=== PATIENT | male | born 1950 | race Hispanic/Latino ===

== ENCOUNTER 2020-08-15 17:32 | Inpatient (IN) | payer SELFPAY ==
[2020-08-15 18:29] LABS: Basophils % 1.3 % (0-1.3); Hematocrit 39.3 % (39.6-49.0); Lymphocytes % 32.7 % (15.3-44.8); MPV 8.5 fL (7.6-11.3)
[2020-08-15 18:46] LABS: Protime INR 0.97
[2020-08-15 18:54] LABS: Albumin 3.8 g/dL (3.4-5.0); Bilirubin Direct 0.1 mg/dL (0-0.2); Bilirubin Total 0.4 mg/dL (0.2-1.0); Potassium 4.3 mmol/L (3.5-5.1); Protein, Total 7.6 g/dL (6.4-8.2); Troponin (Emerg Dept Use Only) 0.23 ng/mL (0.0-0.045)
[2020-08-15] MEDS ORDERED: ASPIRIN 81 MG CHEWABLE TABLET ONE (19:35)
[2020-08-15] MEDS ORDERED: MORPHINE 2 MG/ML SYR ONE (19:36)
[2020-08-15] MEDS ORDERED: METOPROLOL TARTRATE 5 MG/5 ML INJ IV ONE (19:36)
--- NOTE | 2020-08-15 19:52 | ER ---
Nurse's Notes [facility] Name: Ted Barbosa Age: 70 yrs Sex: Male : 1950 Arrival Date: 08/15/2020 Time: 17:35 Bed 18 Private MD: Diagnosis: Unstable angina;Non-ST elevation (NSTEMI) myocardial infarction Presentation: 08/15 17:42 Chief complaint: Patient states: Chest pain for 3 days. More constant today.. ll1 Coronavirus screen: Client denies travel out of the [place] in the last 14 days. At this time, the client does not indicate any symptoms associated with coronavirus-19. Ebola Screen: Patient denies travel to an Ebola-affected area in the 21 days before illness onset. Initial Sepsis Screen: Does the patient meet any 2 criteria? No. Patient's initial sepsis screen is negative. Does the patient have a suspected source of infection? Yes: Other: chest pain. Risk Assessment: Do you want to hurt yourself or someone else? Patient reports no desire to harm self or others. Onset of symptoms was August 13, 2020. 17:42 Method Of Arrival: Ambulatory ll1 17:42 Acuity: CHANTAL 3 ll1 Historical: - Allergies: 17:42 No Known Allergies; ll1 - PMHx: 17:42 Hypertension; High Cholesterol; GERD; Gout; ll1 - PSHx: 17:42 donated kidney; heart cath; ll1 - Immunization history:: Flu vaccine is not up to date. - Social history:: Smoking status: Patient denies any tobacco usage or history of. Screenin:40 Abuse screen: Denies threats or abuse. Denies injuries from another. Nutritional jl7 screening: No deficits noted. Tuberculosis screening: No symptoms or risk factors identified. Fall Risk IV access (20 points). Total [place] Fall Scale indicates No Risk (0-24 pts). Assessment: 18:40 General: Appears in no apparent distress. uncomfortable, Behavior is calm, cooperative, jl7 appropriate for age. Pain: Complains of pain in chest Pain does not radiate. Pain currently is 7 out of 10 on a pain scale. Quality of pain is described as sharp, Pain began 2-3 days ago. Neuro: Level of Consciousness is awake, alert, obeys commands, Oriented to person, place, time, situation. Cardiovascular: Patient's skin is warm and dry. Chest pain episodes are intermittent. Respiratory: Airway is patent Respiratory effort is even, unlabored, Respiratory pattern is regular, symmetrical. Derm: Skin is pink, warm \T\ dry. 20:15 Reassessment: Patient appears in no apparent distress at this time. No changes from jd3 previously documented assessment. Patient and/or family updated on plan of care and expected duration. Pain level reassessed. Patient is alert, oriented x 3, equal unlabored respirations, skin warm/dry/pink. 21:06 Reassessment: Patient appears in no apparent distress at this time. Patient and/or jd3 family updated on plan of care and expected duration. Pain level reassessed. Patient is alert, oriented x 3, equal unlabored respirations, skin warm/dry/pink. awaiting admission. 21:32 Reassessment: charting continued in [facility]. jd3 Vital Signs: 17:42 Pulse 70; Resp 17; Temp 98.1; Pulse Ox 95% ; Weight 71 kg; Height 5 ft. 2 in. (160 cm); ll1 Pain 8/10; 17:56 BP 152 / 76; ll1 18:40 BP 142 / 73; Pulse 71; Resp 15; Pulse Ox 93% ; jl7 20:15 BP 146 / 69; Pulse 74; Resp 14 S; Pulse Ox 96% on R/A; jd3 21:06 BP 142 / 73; Pulse 68; Resp 17 S; Pulse Ox 99% on R/A; jd3 17:42 Body Mass Index 27.73 (71.00 kg, 160 cm) ll1 ED Course: 17:35 Patient arrived in ED. ag5 17:44 Triage completed. ll1 17:44 Arm band placed on Patient placed in an exam room, on a stretcher. ll1 17:47 Radha Cohen, JAYE is Primary Nurse. jl7 18:00 Patient has correct armband on for positive identification. Placed in gown. Bed in low jl7 position. Call light in reach. Side rails up X 1. quality assurance monitor final on. Pulse ox on. NIBP on. 18:00 EKG done, by ED staff, reviewed by Herberth Charles MD. Inserted saline lock: 20 gauge in jl7 right wrist, using aseptic technique. Blood collected. Patient maintains SpO2 saturation greater than 95% on room air. 18:06 Herberth Charles MD is Attending Physician. kdr 18:30 Initial lab(s) drawn, by me, sent to lab. jl7 19:03 Attending Physician role handed off by Herberth Charles MD rn 19:03 Maurizio Goins MD is Attending Physician. rn 19:07 XRAY Chest (1 view) In Process Unspecified. EDMS 19:51 Giovanni Ren is Hospitalizing Provider. rn 19:53 Primary Nurse role handed off by Radha Cohen RN mw2 20:10 Wu Caruso RN is Primary Nurse. jd3 20:31 Lynne Barr MD is Hospitalizing Provider. jr8 21:07 No provider procedures requiring assistance completed. Patient admitted, IV remains in jd3 place. Administered Medications: 19:33 Drug: Aspirin Chewable Tablet 324 mg Route: PO; jd3 21:07 Follow up: Response: No adverse reaction jd3 19:33 Drug: Lopressor 5 mg Route: IVP; Site: right wrist; jd3 21:07 Follow up: Response: No adverse reaction jd3 20:27 Drug: Lovenox 70 mg Route: Sub-Q; Site: abdomen; jd3 21:07 Follow up: Response: No adverse reaction jd3 21:07 Not Given (Patient Refused): morphine 2 mg IVP once; (PAIN>8) RASS on ADMN: Combtv4, jd3 Very Agttd3, Agttd2, Rstlss1, AlertClm0, Drwsy-1, LtSdtn-2, ModSdtn-3, DpSdtn-4, UnArsble-5 x2 Outcome: 19:51 Decision to Hospitalize by Provider. rn 21:07 Admitted to ER Hold. Please see [facility] for further documentation. jd3 21:07 Condition: stable 21:07 Instructed on the need for admit, Demonstrated understanding of instructions. 08/16 00:00 Admitted to Med/surg accompanied by nurse, room 213, with chart, Report called to cele Dias RN Condition: stable Instructed on the need for admit, Demonstrated understanding of instructions. 00:03 Patient left the ED. jd3 Signatures: Dispatcher [employer] EDND Rittger, Herberth, Maurizio Teixeira MD, MD MD rn Roshni, LINWOOD Hess jr8 Radha Cohen, RN RN jl7 Wu Caruso RN RN jd3 Pepe Rosario 2 Ivania Mcintosh5 Paul Quigley, RN RN ll1
--- NOTE | 2020-08-15 19:52 | EDPHYS ---
Physician Documentation [facility] Name: Ted Barbosa Age: 70 yrs Sex: Male : 1950 Arrival Date: 08/15/2020 Time: 17:35 Bed 18 Private MD: ED Physician Maurizio Goins HPI: 08/15 19:02 This 70 yrs old Male presents to ER via Ambulatory with complaints of Chest kdr Pain. 19:02 The patient or guardian reports chest pain that is located primarily in the anterior kdr chest wall, left. Onset: gradually, 8 day(s) ago. The pain does not radiate. Associated signs and symptoms: Pertinent positives: nausea, Pertinent negatives: abdominal pain, cough, diaphoresis, dizziness, headache, shortness of breath. The chest pain is described as aching, dull, a pressure. Duration: The patient or guardian reports multiple episodes, that are intermittent, that wax and wane, with no pattern. Modifying factors: The symptoms are alleviated by nothing. the symptoms are aggravated by exertion. Severity of pain: At its worst the pain was moderate severe just prior to arrival, in the emergency department the pain is unchanged. Historical: - Allergies: 17:42 No Known Allergies; ll1 - PMHx: 17:42 Hypertension; High Cholesterol; GERD; Gout; ll1 - PSHx: 17:42 donated kidney; heart cath; ll1 - Immunization history:: Flu vaccine is not up to date. - Social history:: Smoking status: Patient denies any tobacco usage or history of. ROS: 19:05 Constitutional: Negative for fever, chills, and weight loss, Eyes: Negative for injury, kdr pain, redness, and discharge, Neck: Negative for injury, pain, and swelling, Respiratory: Negative for shortness of breath, cough, wheezing, and pleuritic chest pain, Abdomen/GI: Negative for abdominal pain, nausea, vomiting, diarrhea, and constipation, Back: Negative for injury and pain, : Negative for injury, bleeding, discharge, and swelling, MS/Extremity: Negative for injury and deformity, Skin: Negative for injury, rash, and discoloration, Neuro: Negative for headache, weakness, numbness, tingling, and seizure activity. Psych: Negative for depression, anxiety, suicide ideation, homicidal ideation, and hallucinations, Allergy/Immunology: Negative for hives, rash, and allergies, Endocrine: Negative for neck swelling, polydipsia, polyuria, polyphagia, and marked weight changes, Hematologic/Lymphatic: Negative for swollen nodes, abnormal bleeding, and unusual bruising. 19:05 Cardiovascular: Positive for chest pain, Negative for edema, orthopnea, palpitations, paroxysmal nocturnal dyspnea. Exam: 19:05 Constitutional: This is a well developed, well nourished patient who is awake, alert, kdr and in no acute distress. Head/Face: Normocephalic, atraumatic. Eyes: Pupils equal round and reactive to light, extra-ocular motions intact. Lids and lashes normal. Conjunctiva and sclera are non-icteric and not injected. Cornea within normal limits. Periorbital areas with no swelling, redness, or edema. Neck: Trachea midline, no thyromegaly or masses palpated, and no cervical lymphadenopathy. Supple, full range of motion without nuchal rigidity, or vertebral point tenderness. No Meningismus. Chest/axilla: Normal chest wall appearance and motion. Nontender with no deformity. No lesions are appreciated. Cardiovascular: Regular rate and rhythm with a normal S1 and S2. No gallops, murmurs, or rubs. Normal PMI, no JVD. No pulse deficits. Respiratory: Lungs have equal breath sounds bilaterally, clear to auscultation and percussion. No rales, rhonchi or wheezes noted. No increased work of breathing, no retractions or nasal flaring. Abdomen/GI: Soft, non-tender, with normal bowel sounds. No distension or tympany. No guarding or rebound. No evidence of tenderness throughout. Back: No spinal tenderness. No costovertebral tenderness. Full range of motion. Skin: Warm, dry with normal turgor. Normal color with no rashes, no lesions, and no evidence of cellulitis. MS/ Extremity: Pulses equal, no cyanosis. Neurovascular intact. Full, normal range of motion. Neuro: Awake and alert, GCS 15, oriented to person, place, time, and situation. Cranial nerves II-XII grossly intact. Motor strength 5/5 in all extremities. Sensory grossly intact. Cerebellar exam normal. Normal gait. Psych: Awake, alert, with orientation to person, place and time. Behavior, mood, and affect are within normal limits. 19:05 ECG was reviewed by the Attending Physician. Vital Signs: 17:42 Pulse 70; Resp 17; Temp 98.1; Pulse Ox 95% ; Weight 71 kg; Height 5 ft. 2 in. (160 cm); ll1 Pain 8/10; 17:56 BP 152 / 76; ll1 18:40 BP 142 / 73; Pulse 71; Resp 15; Pulse Ox 93% ; jl7 20:15 BP 146 / 69; Pulse 74; Resp 14 S; Pulse Ox 96% on R/A; jd3 21:06 BP 142 / 73; Pulse 68; Resp 17 S; Pulse Ox 99% on R/A; jd3 17:42 Body Mass Index 27.73 (71.00 kg, 160 cm) ll1 MDM: 19:03 Patient medically screened. rn 19:49 Differential diagnosis: acute myocardial infarction, acute pericarditis, coronary rn artery disease costochondritis, pericarditis, pleurisy, pneumonia, pneumothorax, stable angina, unstable angina. The patient was given aspirin in the Emergency Department. Data reviewed: vital signs, nurses notes, lab test result(s), EKG, radiologic studies, plain films, and as a result, I will admit patient. Counseling: I had a detailed discussion with the patient and/or guardian regarding: the historical points, exam findings, and any diagnostic results supporting the discharge/admit diagnosis, lab results, radiology results, the need for further work-up and treatment in the hospital. Response to treatment: the patient's symptoms have resolved after treatment, and as a result, I will admit patient. Admission orders: after a detailed discussion of the patient's condition and case, the admit orders are written by me. Admission orders: after a detailed discussion of the patient's condition and case, the admit orders are written by me. ED course: Pain resolved, trop elevated, reports 1 week of intermittent and increasing chest pain, sounds like unstable angina/NSTEMI, admitted to hospitalist service for further care and cardiology consultation. . 08/15 18:07 Order name: Basic Metabolic Panel; Complete Time: 19:05 kdr 08/15 18:07 Order name: CBC with Diff; Complete Time: 19:05 kdr 08/15 18:07 Order name: LFT's; Complete Time: 19:05 kdr 08/15 18:07 Order name: Magnesium; Complete Time: 19:05 kdr 08/15 18:07 Order name: NT PRO-BNP; Complete Time: 19:05 kdr 08/15 18:07 Order name: PT-INR; Complete Time: 19:05 kdr 08/15 18:07 Order name: Troponin (emerg Dept Use Only); Complete Time: 19:05 kdr 08/15 18:07 Order name: XRAY Chest (1 view); Complete Time: 20:25 kdr 08/15 23:09 Order name: COVID-19 jd3 08/15 23:17 Order name: CORONAVIRUS EDMS 08/15 18:07 Order name: EKG; Complete Time: 18:10 kdr 08/15 18:07 Order name: Cardiac monitoring; Complete Time: 18:36 kdr 08/15 18:07 Order name: EKG - Nurse/Tech; Complete Time: 18:37 kdr 08/15 18:07 Order name: IV Saline Lock; Complete Time: 18:37 kdr 08/15 18:07 Order name: Labs collected and sent; Complete Time: 18:37 kdr 08/15 18:07 Order name: O2 Per Protocol; Complete Time: 18:37 kdr 08/15 18:07 Order name: O2 Sat Monitoring; Complete Time: 18:37 kdr 08/15 20:05 Order name: CONS Physician Consult EDMS EC: Rate is 70 beats/min. Rhythm is regular, Normal Sinus Rhythm with No ectopy. QRS [place] kdr is Normal. DE interval is normal. QRS interval is normal. QT interval is normal. Clinical impression: Normal ECG. Administered Medications: 19:33 Drug: Aspirin Chewable Tablet 324 mg Route: PO; jd3 21:07 Follow up: Response: No adverse reaction jd3 19:33 Drug: Lopressor 5 mg Route: IVP; Site: right wrist; jd3 21:07 Follow up: Response: No adverse reaction jd3 20:27 Drug: Lovenox 70 mg Route: Sub-Q; Site: abdomen; jd3 21:07 Follow up: Response: No adverse reaction jd3 21:07 Not Given (Patient Refused): morphine 2 mg IVP once; (PAIN>8) RASS on ADMN: Combtv4, jd3 Very Agttd3, Agttd2, Rstlss1, AlertClm0, Drwsy-1, LtSdtn-2, ModSdtn-3, DpSdtn-4, UnArsble-5 x2 Disposition: 08/15/20 19:51 Hospitalization ordered by Lynne Barr for Inpatient Admission. Preliminary diagnosis are Unstable angina, Non-ST elevation (NSTEMI) myocardial infarction. - Bed requested for Telemetry/MedSurg (observation). - Status is Inpatient Admission. jd3 - Condition is Stable. - Problem is an ongoing problem. - Symptoms have improved. Signatures: Dispatcher [employer] EDMS Herberth Charles MD MD [facility] Maurizio Goins MD MD rn Roszak, Josh, PA PA jr8 Lexy Zuniga RN RN Wu Caruso RN RN jPaul Bethea RN RN ll1 Corrections: (The following items were deleted from the chart) 20:31 19:51 Hospitalization Ordered by Giovanni Ren for Inpatient Admission. Preliminary jr8 diagnosis is Unstable angina; Non-ST elevation (NSTEMI) myocardial infarction. Bed requested for Telemetry/MedSurg (Inpatient). Status is Inpatient Admission. Condition is Stable. Problem is an ongoing problem. Symptoms have improved. rn 20:56 20:31 08/15/2020 19:51 Hospitalization Ordered by Lynne Barr MD for Inpatient cg Admission. Preliminary diagnosis is Unstable angina; Non-ST elevation (NSTEMI) myocardial infarction. Bed requested for Telemetry/MedSurg (Inpatient). Status is Inpatient Admission. Condition is Stable. Problem is an ongoing problem. Symptoms have improved. [facility] 23:41 20:56 08/15/2020 19:51 Hospitalization Ordered by Lynne Barr MD for Inpatient cg Admission. Preliminary diagnosis is Unstable angina; Non-ST elevation (NSTEMI) myocardial infarction. Bed requested for [facility] ER HOLD. Status is Inpatient Admission. Condition is Stable. Problem is an ongoing problem. Symptoms have improved. 08/16 00:03 08/15 23:41 08/15/2020 19:51 Hospitalization Ordered by Lynne Barr MD for Inpatient jd3 Admission. Preliminary diagnosis is Unstable angina; Non-ST elevation (NSTEMI) myocardial infarction. Bed requested for Telemetry/MedSurg (observation). Status is Inpatient Admission. Condition is Stable. Problem is an ongoing problem. Symptoms have improved. cg
--- NOTE | 2020-08-15 20:04 | RAD REPORT ---
EXAM DESCRIPTION: Derrick Single View08/15/2020 7:07 pm CLINICAL HISTORY: Chest pain COMPARISON: none FINDINGS: The lungs appear clear of acute infiltrate. The heart is normal size IMPRESSION: No acute abnormalities displayed
[2020-08-15] MEDS ORDERED: ENOXAPARIN 80 MG/0.8 ML SQ ONE (20:35)
--- NOTE | 2020-08-15 22:04 | P.HP ---
Certification for Inpatient Patient admitted to: Observation With expected LOS: <2 Midnights Patient will require the following post-hospital care: None Practitioner: I am a practitioner with admitting privileges, knowledge of patient current condition, hospital course, and medical plan of care. Services: Services provided to patient in accordance with Admission requirements found in Title 42 Section 412.3 of the Code of Federal Regulations <Ricardo Barakat - Last Filed: 08/15/20 21:58> Patient History Date of Service: 08/15/20 Primary Care Provider: OOT Reason for admission: NSTEMI History of Present Illness: This is a 70-year-old gentleman that presented to the emergency room tonight after having sudden increase in his chest pain that has been going on for 1 week. Patient has a history of high blood pressure, high cholesterol, GERD, gout, myocardial infarction in the past that resulted in having 3 stents placed this past December. Patient stated that the chest pain has been going on for 1 week and is worse when he exerts himself and is relieved by nitroglycerin. Got to the [facility] where was not being well controlled and started to worry so came to the emergency room at that time. Patient had his stents placed in [place]. Stated that he has been on most of his medicines but has been off of his Plavix because it did not have it at the [facility] there and has had some cost constraints. Currently patient is resting in the emergency room comfortably and without any chest pain. EKG with nonspecific changes but did have an elevation in his troponin is 0.23. Patient denies any other symptoms at this time. Home medications list reviewed: Yes - Past Medical/Surgical History Has patient received pneumonia vaccine in the past: Yes Diabetic: Yes - Social History Smoking Status: Never smoker Alcohol use: No CD- Drugs: No Caffeine use: Yes Place of Residence: Home <SamayannaRicardo - Last Filed: 08/15/20 21:58> Date of Service: 08/16/20 - Family History Father -: Heart disease <Lynne Barr - Last Filed: 08/18/20 07:41> Allergies No Known Allergies Allergy (Verified 08/16/20 06:19) Home Medications: NK [No Home Meds] 08/16/20 Review of Systems General: Unremarkable Eyes: Unremarkable ENT: Unremarkable Respiratory: Unremarkable Cardiovascular: Chest Pain Gastrointestinal: Unremarkable Genitourinary: Unremarkable Musculoskeletal: Unremarkable Integumentary: Unremarkable Neurological: Unremarkable Lymphatics: Unremarkable <Ricardo Barakat - Last Filed: 08/15/20 21:58> Physical Examination - Vital Signs Temperature: 98.1 F Blood Pressure: 142/73 Pulse: 70 Respirations: 16 Pulse Ox (%): 95 - Physical Exam General: Alert, In no apparent distress, Oriented x3 HEENT: Normocephalic, PERRLA, Mucous membr. moist/pink, EOMI Neck: Supple, 2+ carotid pulse no bruit, JVD not distended, No Thyromegaly Respiratory: Clear to auscultation bilaterally, Normal air movement Cardiovascular: No edema, Normal pulses, Regular rate/rhythm, Normal S1 S2, No gallops, No rubs, No murmurs Capillary refill: <2 Seconds Gastrointestinal: Normal bowel sounds, Soft and benign, Non-distended, No ascites, No tenderness, No masses, No rebound, No guarding Musculoskeletal: No clubbing, No swelling, No contractures, No erythema, No tenderness, No warmth Integumentary: No rashes, No breakdown, No significant lesion, No tenderness/swelling, No erythema, No warmth, No cyanosis Neurological: Normal speech, Normal strength at 5/5 x4 extr, Normal tone, Sensation intact, Cranial nerves 3-12 intact, Normal affect Lymphatics: No axilla or inguinal lymphadenopathy - Studies Laboratory Data (last 24 hrs) 08/15/20 18:15: PT 11.5, INR 0.97 08/15/20 18:15: WBC 6.0, Hgb 13.4 L, Hct 39.3 L, Plt Count 163 08/15/20 18:15: Sodium 138, Potassium 4.3, BUN 26 H, Creatinine 1.48 H, Glucose 128 H, Magnesium 2.0, Total Bilirubin 0.4, AST 18, ALT 23, Alkaline Phosphatase 85 <Ricardo Barakat - Last Filed: 08/15/20 21:58> Assessment and Plan - Problems (Diagnosis) (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 Patient will be put on a sliding scale and monitored for tight glucose control. (2) Hyperlipidemia Current Visit: Yes Status: Acute Plan: Patient has long-standing hypercholesterolemia history. We will check a lipid profile panel and adjust his cholesterol medications. Patient currently is on 20 of atorvastatin and 10 pravastatin. This is not at a therapeutic level for a coronary artery disease patient. Will start him on 40 of atorvastatin to see how he does with that and then will gradually increased to 80 mg once a day of atorvastatin if Cardiology is Ok with that. (3) NSTEMI (non-ST elevated myocardial infarction) Current Visit: Yes Status: Acute Plan: Patient has an elevation in his troponin. As such patient will be monitored closely on the telemetry floor for pain and increase in troponin levels was serial enzymes drawn. Cardiology has been consulted and will see the patient 1st thing in the morning. EKGs will be completed as necessary. Patient will be started on Lovenox q.12 hr for therapeutic dosing for anticoagulation. Plavix will be restarted and aspirin will be continued as well. Patient has been given nitroglycerin as needed for pain management along with morphine. (4) Renal insufficiency Current Visit: Yes Status: Acute Plan: Patient has slight renal insufficiency noted on his labs. Patient has only 1 kidney as he donated another kidney in the past. Will monitor the renal levels closely. Light hydration via IV may be given at this time to see if it corrects. Discharge Plan: Home Plan to discharge in: 24 Hours - Advance Directives Does patient have a Living Will: No Does patient have a Durable POA for Healthcare: No - Code Status/Comfort Care Code Status Assessed: Yes Code Status: Full Code Critical Care: No Time Spent Managing Pts Care (In Minutes): 45 <Ricardo Barakat - Last Filed: 08/15/20 21:58> - Problems (Diagnosis) (1) Chest pain, rule out acute myocardial infarction Current Visit: Yes Status: Acute (2) Coronary artery disease Current Visit: Yes Status: Acute (3) Diabetes mellitus type 2 with complications Current Visit: Yes Status: Acute (4) Hyperlipidemia Current Visit: Yes Status: Acute (5) NSTEMI (non-ST elevated myocardial infarction) Current Visit: Yes Status: Acute <Lynne Barr - Last Filed: 08/18/20 07:41> Date of Service: 08/16/20 CHART REVIEWED. AGREE WITH EVENTS ABOVE. PATIENT TO PROCEED WITH CARDIAC CATHETERIZATION. <Lynne Barr - Last Filed: 08/18/20 07:41>
[2020-08-15] MEDS: ATORVASTATIN 40 MG TAB PO SCH (22:16)
[2020-08-15] MEDS ORDERED: D50W 25 GM/50 ML SYRINGE/VIAL IV PRN (22:16)
[2020-08-15] MEDS ORDERED: MORPHINE 2 MG/ML SYR IV PRN (22:16)
[2020-08-15] MEDS: ISOSORBIDE DINIT 5 MG TAB PO SCH (22:16)
[2020-08-15] MEDS ORDERED: GLUCAGON 1 MG/VIAL IM PRN (22:16)
[2020-08-15] MEDS: INSULIN -REGULAR HUMAN 50 UNIT/0.5 ML ML SQ SCH (22:16)
[2020-08-15] MEDS ORDERED: ONDANSETRON 4 MG/2 ML VIAL IV PRN (22:16)
[2020-08-15] MEDS ORDERED: ACETAMINOPHEN 500 MG TAB PO PRN (22:16)
[2020-08-15] MEDS ORDERED: NITROGLYCERIN 0.4 MG/TAB SL PRN (22:16)
[2020-08-15] MEDS ORDERED: ISOSORBIDE DINIT 5 MG TAB ONE (23:42)
[2020-08-16 01:13] VITALS: BMI 26.1
[2020-08-16 05:50] LABS: Potassium 4.2 mmol/L (3.5-5.1)
[2020-08-16 05:56] LABS: Absolute Lymphocytes (CBC) 1.9 K/uL (0.7-4.9); Hematocrit 41.5 % (39.6-49.0); Lymphocytes % 30.3 % (15.3-44.8); MPV 8.3 fL (7.6-11.3)
[2020-08-16 06:23] LABS: Troponin I 0.3 ng/mL (0.0-0.045)
[2020-08-16] MEDS: INSULIN -REGULAR HUMAN 50 UNIT/0.5 ML ML SQ SCH ×4 (07:30→21:00)
[2020-08-16] MEDS ORDERED: PNEUMOCOCCAL VACCINE 0.5 ML IMVAC ONE (08:00)
[2020-08-16] MEDS ORDERED: INFLUENZA VACCINE (for 3y+) 0.5 ML DOSE IMVAC ONE (08:00)
[2020-08-16] MEDS: ENOXAPARIN 80 MG/0.8 ML SQ SCH ×2 (08:02→21:34)
[2020-08-16] MEDS: CLOPIDOGREL 75 MG TABLET PO SCH (08:30)
[2020-08-16] MEDS: METOPROLOL TAR 50 MG TAB PO SCH ×2 (08:30→21:33)
[2020-08-16] MEDS: ASPIRIN EC 81 MG TAB PO SCH (08:30)
[2020-08-16] MEDS: ENALAPRIL 10 MG TAB PO SCH (08:31)
[2020-08-16] MEDS: ISOSORBIDE DINIT 5 MG TAB PO SCH ×2 (08:35→21:34)
[2020-08-16] MEDS ORDERED: NA CHLORIDE 0.9% 0 ML ONE (11:09)
[2020-08-16] MEDS ORDERED: LIDOCAINE 1% MPF 30 ML VIAL ONE (11:09)
[2020-08-16] MEDS ORDERED: FENTANYL CITR 100 MCG/2 ML ONE (11:09)
[2020-08-16] MEDS ORDERED: MIDAZOLAM HCL 2 MG/2 ML INJ ONE (11:09)
[2020-08-16] MEDS ORDERED: HEPA 1000U/500MLS 1,000 UNIT/500 ML BAG IV ONE (11:09)
[2020-08-16] MEDS ORDERED: NA CHLORIDE 0.9% 500 ML ONE (11:10)
[2020-08-16] MEDS ORDERED: NITROGLYCERIN/D5W 0 MG/0 ML BTL IV ONE (11:10)
[2020-08-16] MEDS ORDERED: NITROGLYCERIN 100 MCG/ML SYR (for cath lab use only) IV ONE (11:10)
[2020-08-16] MEDS ORDERED: ATROPINE SULF 1 MG/10 ML SYR IV ONE (11:10)
--- NOTE | 2020-08-16 11:28 | EKG ---
Test Date: 2020-08-15 Test Time: 17:52:03 Disk Sharpener: ABBY MEASUREMENT RESULTS: Intervals: Rate: 70 NV: 172 QRSD: 98 QT: 358 QTc: 386 [place]: P: 61 NV: 172 QRS: 64 T: 82 INTERPRETIVE STATEMENTS: Normal sinus rhythm Normal ECG No previous ECG available for comparison Electronically Signed On 08-16-20 11:27:08 CDT by Jairo Foster
[2020-08-16] MEDS ORDERED: ACETAMINOPHEN 325 MG TABLET PO PRN (17:13)
[2020-08-16] MEDS ORDERED: NITROGLYCERIN 0.4 MG/TAB SL PRN (17:14)
[2020-08-16] MEDS ORDERED: NA CHLORIDE 0.9% 1,000 ML IV PRN (17:16)
[2020-08-16] MEDS: AMLODIPINE 5 MG TAB PO SCH (18:49)
[2020-08-16] MEDS: ATORVASTATIN 40 MG TAB PO SCH (21:34)
[2020-08-17 05:46] LABS: Absolute Lymphocytes (CBC) 1.6 K/uL (0.7-4.9); Hematocrit 43.1 % (39.6-49.0); Lymphocytes % 24.2 % (15.3-44.8); MPV 7.5 fL (7.6-11.3); RBC Red Blood Cell Count 4.77 M/uL (4.33-5.43)
[2020-08-17 06:02] LABS: Potassium 4.2 mmol/L (3.5-5.1)
[2020-08-17] MEDS: INSULIN -REGULAR HUMAN 50 UNIT/0.5 ML ML SQ SCH ×4 (07:30→21:00)
--- NOTE | 2020-08-17 08:55 | P.PN ---
Subjective Date of Service: 08/16/20 Pain s/p cardiac catheterization. Patient will need bypass surgery. Arranging for transfer to tertiary care facility. Review of Systems 10-point ROS is otherwise unremarkable Physical Examination - Vital Signs Temperature: 97.0 F Blood Pressure: 140/78 Pulse: 60 Respirations: 16 Pulse Ox (%): 96 - Physical Exam General: Alert, In no apparent distress, Oriented x3 Respiratory: Clear to auscultation bilaterally, Normal air movement Cardiovascular: Regular rate/rhythm, Normal S1 S2, No murmurs Gastrointestinal: Normal bowel sounds, Soft and benign, Non-distended, No tenderness Musculoskeletal: No clubbing, No swelling, No tenderness Integumentary: No rashes Neurological: Normal speech, Normal tone, Sensation intact, Cranial nerves 3-12 intact, Normal affect Lymphatics: No axilla or inguinal lymphadenopathy - Studies Medications List Reviewed: Yes Assessment & Plan - Problems (Diagnosis) (1) Chest pain, rule out acute myocardial infarction Current Visit: Yes Status: Acute (2) Coronary artery disease Current Visit: Yes Status: Acute (3) Diabetes mellitus type 2 with complications Current Visit: Yes Status: Acute (4) Hyperlipidemia Current Visit: Yes Status: Acute (5) NSTEMI (non-ST elevated myocardial infarction) Current Visit: Yes Status: Acute - Plan Plan: 1. Transfer to tertiary care facility for bypass surgery 2. Continue with anti-platelet therapy and statin therapy 3. Strict blood pressure control 4. Monitor hemodynamics closely as well as monitor rhythm on telemetry 5. GI and DVT prophylaxis Discharge Plan: Home Plan to discharge in: Greater than 2 days - Advance Directives Does patient have a Living Will: No Does patient have a Durable POA for Healthcare: No - Code Status/Comfort Care Code Status: Full Code Critical Care: No Time Spent Managing PTS Care (In Minutes): 35
--- NOTE | 2020-08-17 08:58 | CON ---
Date of Consultation: 08/16/2020 Reason For Consultation: Non ST-elevation myocardial infarction. History Of Present Illness: The patient is a 70-year-old male who unfortunately gets most of his care in [place], so I have absolutely no records of what he has done, but he has a history of hypertension, dyslipidemia, coronary artery disease, status post multiple stents as recently as M arch of this year. He takes appropriate medication at home as prescribed, but we are not sure about the compliance. He came in with substernal chest pain, positive troponin, consistent with subendocar dial myocardial infarction. Symptoms have been going on for few hours when he came in. Past Medical History: As stated above. Allergies: NONE. Review of Systems: Negative. Social History: Negative. Family History: Noncontributory. Physical Examination: Vital Signs: Stable. He was afebrile. HEENT: Negative. Neck: Supple with no bruit. Chest: Clear to auscultation and percussion. Cardiac: Revealed a regular rhythm and rate. No murmurs, gallops, or rubs. Abdomen: Benign. Extremities: Revealed no clubbing, cyanosis, or edema. Diagnostic Data: His chest x-ray was negative. His troponin was 1.48. His hemoglobin was 13.4. PT and INR were normal. His glucose was 128. His troponin was 0.23. His BNP was 325. His EKG was no rmal. Impression And Plan: 1.Non ST-elevation myocardial infarction in a patient with history of coronary artery disease, statu s post multiple stents recently, noncompliant with medication. 2.Hypertension. 3.Dyslipidemia. I will take the patient to the laborer prestressed concrete on 08/16/2020. He understands the risks an d the benefits of the procedure and he agreed to proceed. For now, continue his present regimen. FLORY/KEVYN Voice ID: [id number] Report ID: [id number]
[2020-08-17] MEDS: CLOPIDOGREL 75 MG TABLET PO SCH (09:00)
[2020-08-17] MEDS: ISOSORBIDE DINIT 5 MG TAB PO SCH ×2 (09:47→21:57)
[2020-08-17] MEDS: AMLODIPINE 5 MG TAB PO SCH (09:47)
[2020-08-17] MEDS: ASPIRIN EC 81 MG TAB PO SCH (09:48)
[2020-08-17] MEDS: ENALAPRIL 10 MG TAB PO SCH (09:48)
[2020-08-17] MEDS: ENOXAPARIN 80 MG/0.8 ML SQ SCH ×2 (09:49→21:56)
[2020-08-17] MEDS: METOPROLOL TAR 50 MG TAB PO SCH ×2 (09:49→21:56)
--- NOTE | 2020-08-17 10:10 | OP ---
Date of Procedure: 08/16/2020 Surgeon: Jairo Foster MD Triage Specialist: Abbi Hidalgo. Procedure: Left heart catheterization with selective coronary arteriogram. Indication: Non-ST elevation myocardial infarction. Procedure In Detail: Mr. Knox is a 70-year-old male who really has no known record s that are available to us, but he has a history of hypertension, dyslipidemia, CAD status post stent s in [place] in December 2019. I am not so sure he is taking his medication, but he came in with chest p ain and positive troponin. Brought to the cytogenetics laboratory manager today, prepped and draped in the routine sterile fashion. Given Versed for sedation. Using the Seldinger technique, we put a 6-Trinidadian sheath in the right common femoral artery successfully. Angiography there was normal. StarClose was used to close the case. Sylvester catheter was used to do the catheterization. He was found to have a completely o ccluded stent in the LAD from the distal left main all the way down after the second diagonal. He al so had about 60 to 70% distal LAD stenosis. Circumflex was fairly free of disease. The RCA was smal l and nondominant. The plan was to send the patient for bypass surgery with the HOFFMAN to the LAD and possible LAD and endarterectomy unless I feel comfortable doing an angioplasty and stent on his multi ple stents in [place]. I am certainly uncomfortable with doing that here. This was discussed with t radha patient and the family. Complications: None. Blood Loss: 5 mL. Anesthesia: Total conscious sedation was 30 minutes. Final Diagnoses: Severe CAD. Plan: For possible HOFFMAN to the LAD. FLORY/KEVYN Voice ID: [id number] Report ID: [id number]
--- NOTE | 2020-08-17 14:21 | ECHO ---
HEIGHT: 5 ft 5 in WEIGHT: 156 lb 14.4 oz DATE OF STUDY: 08/17/[address]: Jairo Foster MD 2-DIMENSIONAL: YES M.MODE: YES DOPPLER: YES COLOR FLOW: YES TDS: PORTABLE: DEFINITY: BUBBLE STUDY: DIAGNOSIS: CHEST PAIN CARDIAC HISTORY: CATHERIZATION: YES SURGERY: NO PROSTHETIC VALVE: NO PACEMAKER: NO MEASUREMENTS (cm) DIASTOLIC (NORMALS) SYSTOLIC (NORMALS) IVSd 0.9 (0.6-1.2) LA Diam 2.7 (1.9-4.0) LVEF 54% LVIDd 2.7 (3.5-5.7) LVIDs 2.0 (2.0-3.5) %FS 27% LVPWd 0.9 (0.6-1.2) Ao Diam 2.2 (2.0-3.7) 2 DIMENSIONAL ASSESSMENT: RIGHT ATRIUM: NORMAL LEFT ATRIUM: NORMAL RIGHT VENTRICLE: NORMAL LEFT VENTRICLE: NORMAL TRICUSPID VALVE: NORMAL MITRAL VALVE: NORMAL PULMONIC VALVE: NORMAL AORTIC VALVE: MILD AORTIC INSUFFIENCY PERICARDIAL EFFUSION: NONE AORTIC ROOT: NORMAL LEFT VENTRICULAR WALL MOTION: NORMAL DOPPLER/COLOR FLOW: NORMAL COMMENTS: NORMAL LEFT VENTRICULAR EJECTION FRACTION 55-60% WITH NORMAL WALL MOTION. MILD AORTIC INSUFFIENCY. TECHNOLOGIST: JAMES MILIAN
--- NOTE | 2020-08-17 14:25 | P.DS ---
Discharge Date: 08/17/20 Primary Care Provider: DENI Disposition: TRANSFER TO [facility] Discharge Condition: GOOD Reason for Admission: NSTEMI Consultations: Quill Worker - Problems (1) Chest pain, rule out acute myocardial infarction Current Visit: Yes Status: Acute (2) Coronary artery disease Current Visit: Yes Status: Acute (3) Diabetes mellitus type 2 with complications Current Visit: Yes Status: Acute (4) Hyperlipidemia Current Visit: Yes Status: Acute (5) NSTEMI (non-ST elevated myocardial infarction) Current Visit: Yes Status: Acute Brief History of Present Illness: Patient is a 70-year-old gentleman who came to the hospital with chest d iscomfort. Pain was mainly in the sternal region. There was no radiation. Patient also has some shortness of breath associated with it. Patient saw the firmware architect and was scheduled for cardiac catheterization. Hospital Course: Patient her heart catheterization which revealed multivessel disease. Patient was advised for transfer to tertiary care facility-[facility]. At this time, patient is doing well. Patient is stable for transfer to a tertiary care facility for possible bypass surgery. Vital Signs/Physical Exam: Temp Pulse Resp BP Pulse Ox 97.8 F 57 18 111/62 92 08/17/20 12:00 08/17/20 12:00 08/17/20 12:00 08/17/20 12:00 08/17/20 12:00 General: Alert, In no apparent distress, Oriented x3 Respiratory: Clear to auscultation bilaterally, Normal air movement Cardiovascular: Regular rate/rhythm, Normal S1 S2, No murmurs Laboratory Data at Discharge: WBC 6.6 K/uL (4.3-10.9) 08/17/20 05:33 Hgb 15.0 g/dL (13.6-17.9) 08/17/20 05:33 Hct 43.1 % (39.6-49.0) 08/17/20 05:33 Plt Count 161 K/uL (152-406) 08/17/20 05:33 PT 11.5 SECONDS (9.5-12.5) 08/15/20 18:15 INR 0.97 08/15/20 18:15 Sodium 141 mmol/L (136-145) 08/17/20 05:33 Potassium 4.2 mmol/L (3.5-5.1) 08/17/20 05:33 BUN 29 mg/dL (7-18) H 08/17/20 05:33 Creatinine 1.62 mg/dL (0.55-1.3) H 08/17/20 05:33 Glucose 126 mg/dL (74-106) H 08/17/20 05:33 Magnesium 2.0 mg/dL (1.8-2.4) 08/15/20 18:15 Total Bilirubin 0.4 mg/dL (0.2-1.0) 08/15/20 18:15 AST 18 U/L (15-37) 08/15/20 18:15 ALT 23 U/L (12-78) 08/15/20 18:15 Alkaline Phosphatase 85 U/L (45-117) 08/15/20 18:15 Troponin I Cancelled 08/16/20 05:58 Triglycerides 69 mg/dL (<150) 08/16/20 00:36 Cholesterol 100 mg/dL (<200) 08/16/20 00:36 HDL Cholesterol 39 mg/dL (40-60) L 08/16/20 00:36 Cholesterol/HDL Ratio 2.56 08/16/20 00:36 Home Medications: NK [No Home Meds] 08/16/20 Patient Discharge Instructions: Transfer to [facility] Diet: AHA Activity: Fall precautions Followup: Unknown,U [Primary Care Provider] - Time spent managing pt's care (in minutes): 35
[2020-08-17] MEDS: ATORVASTATIN 40 MG TAB PO SCH (21:57)
[2020-08-18] MEDS: INSULIN -REGULAR HUMAN 50 UNIT/0.5 ML ML SQ SCH ×4 (07:30→20:00)
--- NOTE | 2020-08-18 07:45 | P.PN ---
Subjective Date of Service: 08/17/20 PATIENT WAS SUPPOSED TO GET TRANSFERRED. HOWEVER, AWAITING FOR ACCEPTANCE TO A TERTIARY CARE FACILITY. PATIENT DENIES HAVING CHEST PAIN. SYMPTOMS ARE STABLE. Review of Systems 10-point ROS is otherwise unremarkable Physical Examination - Vital Signs Temperature: 97.9 F Blood Pressure: 139/63 Pulse: 57 Respirations: 16 Pulse Ox (%): 96 - Physical Exam General: Alert, In no apparent distress, Oriented x3 Respiratory: Clear to auscultation bilaterally, Normal air movement Cardiovascular: Regular rate/rhythm, Normal S1 S2, No murmurs Gastrointestinal: Normal bowel sounds, Soft and benign, Non-distended, No tenderness Musculoskeletal: No clubbing, No swelling, No tenderness Neurological: Sensation intact, Cranial nerves 3-12 intact - Studies Medications List Reviewed: Yes Assessment & Plan - Problems (Diagnosis) (1) Chest pain, rule out acute myocardial infarction Current Visit: Yes Status: Acute (2) Coronary artery disease Current Visit: Yes Status: Acute (3) Diabetes mellitus type 2 with complications Current Visit: Yes Status: Acute (4) Hyperlipidemia Current Visit: Yes Status: Acute (5) NSTEMI (non-ST elevated myocardial infarction) Current Visit: Yes Status: Acute - Plan PLAN: 1. IF ARRANGE FOR TRANSFER TO A TERTIARY CARE FACILITY IN 2. CONTINUE WITH ANTI-PLATELET THERAPY AND STRICT BLOOD PRESSURE CONTROL 3. CONTINUE WITH STATIN THERAPY 4. MONITOR CARDIAC SYMPTOMS. Discharge Plan: Home Plan to discharge in: Greater than 2 days - Advance Directives Does patient have a Living Will: No Does patient have a Durable POA for Healthcare: No - Code Status/Comfort Care Code Status: Full Code Critical Care: No Time Spent Managing PTS Care (In Minutes): 35
[2020-08-18] MEDS: ENOXAPARIN 80 MG/0.8 ML SQ SCH ×2 (07:58→19:58)
[2020-08-18] MEDS: AMLODIPINE 5 MG TAB PO SCH (07:59)
[2020-08-18] MEDS: ISOSORBIDE DINIT 5 MG TAB PO SCH ×2 (08:00→19:59)
[2020-08-18] MEDS: ENALAPRIL 10 MG TAB PO SCH (08:00)
[2020-08-18] MEDS: METOPROLOL TAR 50 MG TAB PO SCH ×2 (08:00→19:59)
[2020-08-18] MEDS: ASPIRIN EC 81 MG TAB PO SCH (08:00)
--- NOTE | 2020-08-18 13:13 | P.PN ---
Subjective Date of Service: 08/18/20 Patient doing well with no new complaints. Patient's chest pain has resolved. Awaiting transfer to tertiary care facility Review of Systems 10-point ROS is otherwise unremarkable Physical Examination - Vital Signs Temperature: 97.2 F Blood Pressure: 123/68 Pulse: 54 Respirations: 18 Pulse Ox (%): 98 - Physical Exam General: Alert, In no apparent distress, Oriented x3 Respiratory: Clear to auscultation bilaterally, Normal air movement Cardiovascular: Regular rate/rhythm, Normal S1 S2, No murmurs Gastrointestinal: Normal bowel sounds, Soft and benign, Non-distended, No tenderness Musculoskeletal: No clubbing, No swelling, No tenderness Neurological: Sensation intact, Cranial nerves 3-12 intact - Studies Medications List Reviewed: Yes Assessment & Plan - Problems (Diagnosis) (1) Chest pain, rule out acute myocardial infarction Current Visit: Yes Status: Acute (2) Coronary artery disease Current Visit: Yes Status: Acute (3) Diabetes mellitus type 2 with complications Current Visit: Yes Status: Acute (4) Hyperlipidemia Current Visit: Yes Status: Acute (5) NSTEMI (non-ST elevated myocardial infarction) Current Visit: Yes Status: Acute - Plan PLAN: 1. ARRANGING FOR TRANSFER TO A TERTIARY CARE FACILITY 2. CONTINUE WITH ANTI-PLATELET THERAPY AND STRICT BLOOD PRESSURE CONTROL 3. CONTINUE WITH STATIN THERAPY 4. MONITOR CARDIAC SYMPTOMS 5. GI AND DVT PROPHYLAXIS Discharge Plan: Home Plan to discharge in: Greater than 2 days - Advance Directives Does patient have a Living Will: No Does patient have a Durable POA for Healthcare: No - Code Status/Comfort Care Code Status: Full Code Critical Care: No Time Spent Managing PTS Care (In Minutes): 35
[2020-08-18] MEDS: ATORVASTATIN 40 MG TAB PO SCH (20:00)
[2020-08-19] MEDS: INSULIN -REGULAR HUMAN 50 UNIT/0.5 ML ML SQ SCH ×4 (07:30→20:46)
[2020-08-19] MEDS: ENOXAPARIN 80 MG/0.8 ML SQ SCH ×2 (08:49→20:40)
[2020-08-19] MEDS: AMLODIPINE 5 MG TAB PO SCH (08:50)
[2020-08-19] MEDS: METOPROLOL TAR 50 MG TAB PO SCH ×2 (08:50→20:39)
[2020-08-19] MEDS: ASPIRIN EC 81 MG TAB PO SCH (08:50)
[2020-08-19] MEDS: ISOSORBIDE DINIT 5 MG TAB PO SCH ×2 (08:51→20:40)
[2020-08-19] MEDS: ENALAPRIL 10 MG TAB PO SCH (08:52)
[2020-08-19] MEDS: ATORVASTATIN 40 MG TAB PO SCH (20:39)
[2020-08-20] MEDS: INSULIN -REGULAR HUMAN 50 UNIT/0.5 ML ML SQ SCH ×4 (07:30→21:00)
[2020-08-20] MEDS: ASPIRIN EC 81 MG TAB PO SCH (09:44)
[2020-08-20] MEDS: ENOXAPARIN 80 MG/0.8 ML SQ SCH ×2 (09:45→20:54)
[2020-08-20] MEDS: ISOSORBIDE DINIT 5 MG TAB PO SCH ×2 (09:46→20:55)
[2020-08-20] MEDS: METOPROLOL TAR 50 MG TAB PO SCH ×2 (09:47→20:55)
[2020-08-20] MEDS: AMLODIPINE 5 MG TAB PO SCH (09:48)
[2020-08-20] MEDS: ENALAPRIL 10 MG TAB PO SCH (09:48)
[2020-08-20 20:30] VITALS: O2SAT 90
[2020-08-20 20:48] VITALS: TEMP 97.7
[2020-08-20] MEDS: ATORVASTATIN 40 MG TAB PO SCH (20:55)
[2020-08-21 00:01] VITALS: BP 124/68
--- NOTE | 2020-08-21 00:38 | P.PN ---
Subjective Date of Service: 08/19/20 Patient with no new complaints. Patient's denies chest pain. Updated family. Awaiting transfer to tertiary [facility] facility Review of Systems 10-point ROS is otherwise unremarkable Physical Examination - Vital Signs Temperature: 97.7 F Blood Pressure: 124/68 Pulse: 58 Respirations: 20 Pulse Ox (%): 99 - Physical Exam General: Alert, In no apparent distress, Oriented x3 Respiratory: Clear to auscultation bilaterally, Normal air movement Cardiovascular: Regular rate/rhythm, Normal S1 S2, No murmurs Gastrointestinal: Normal bowel sounds, Soft and benign, Non-distended, No tenderness Musculoskeletal: No clubbing, No swelling, No tenderness Neurological: Sensation intact, Cranial nerves 3-12 intact - Studies Medications List Reviewed: Yes Assessment & Plan - Problems (Diagnosis) (1) NSTEMI (non-ST elevated myocardial infarction) Status: Acute (2) Coronary artery disease Status: Acute (3) Chest pain, rule out acute myocardial infarction Status: Acute (4) Diabetes mellitus type 2 with complications Status: Acute (5) Hyperlipidemia Status: Acute - Plan PLAN: 1. AWAITIMG TRANSFER TO TERTIARY [facility] FACILITY 2. CONTINUE WITH ANTI-PLATELET THERAPY AND STRICT BLOOD PRESSURE CONTROL 3. CONTINUE WITH STATIN THERAPY 4. MONITORING FOR ANY CARDIAC SYMPTOMS 5. GI AND DVT PROPHYLAXIS Discharge Plan: Transfer Plan to discharge in: 48 Hours - Advance Directives Does patient have a Living Will: No Does patient have a Durable POA for Healthcare: No - Code Status/Comfort Care Code Status: Full Code Critical Care: No Time Spent Managing PTS Care (In Minutes): 35
--- NOTE | 2020-08-21 00:40 | P.PN ---
Subjective Date of Service: 08/20/20 CONTINUING TO DO WELL WITH NO NEW COMPLAINTS Review of Systems 10-point ROS is otherwise unremarkable Physical Examination - Vital Signs Temperature: 97.7 F Blood Pressure: 124/68 Pulse: 58 Respirations: 20 Pulse Ox (%): 99 - Physical Exam General: Alert, In no apparent distress, Oriented x3 Respiratory: Clear to auscultation bilaterally, Normal air movement Cardiovascular: Regular rate/rhythm, Normal S1 S2, No murmurs Gastrointestinal: Normal bowel sounds, Soft and benign, Non-distended, No tenderness, No masses, No rebound, No guarding Neurological: Sensation intact, Cranial nerves 3-12 intact - Studies Medications List Reviewed: Yes Assessment & Plan - Problems (Diagnosis) (1) NSTEMI (non-ST elevated myocardial infarction) Status: Acute (2) Coronary artery disease Status: Acute (3) Chest pain, rule out acute myocardial infarction Status: Acute (4) Diabetes mellitus type 2 with complications Status: Acute (5) Hyperlipidemia Status: Acute - Plan PLAN: CONTINUE WITH POC MENTIONED BELOW: 1. TRANSFER TO TERTIARY CARE FACILITY 2. CONTINUE WITH ANTI-PLATELET THERAPY AND STRICT BLOOD PRESSURE CONTROL 3. CONTINUE WITH STATIN THERAPY 4. MONITORING FOR ANY CARDIAC SYMPTOMS 5. GI AND DVT PROPHYLAXIS Discharge Plan: Transfer Plan to discharge in: 24 Hours - Advance Directives Does patient have a Living Will: No Does patient have a Durable POA for Healthcare: No - Code Status/Comfort Care Code Status: Full Code Critical Care: No Time Spent Managing PTS Care (In Minutes): 35
--- NOTE | 2020-08-21 00:42 | P.DS ---
Discharge Date: 08/21/20 Primary Care Provider: EDNI Disposition: TRANSFER TO [facility] Discharge Condition: GOOD Reason for Admission: NSTEMI Consultations: Artificial Foliage Arranger - Problems (1) NSTEMI (non-ST elevated myocardial infarction) Status: Acute (2) Coronary artery disease Status: Acute (3) Chest pain, rule out acute myocardial infarction Status: Acute (4) Diabetes mellitus type 2 with complications Status: Acute (5) Hyperlipidemia Status: Acute Brief History of Present Illness: Patient is a 70-year-old gentleman who came to the hospital with chest discomfort. Pain was mainly in the sternal region. There was no radiation. Patient also has some shortness of breath associated with it. Patient saw the product engineering manager and was scheduled for cardiac catheterization. Hospital Course: Patient had heart catheterization which revealed multivessel disease. Patient was advised for transfer to tertiary care facility-[facility]. At this time, patient is doing well. Patient is stable for transfer to a tertiary care facility for possible bypass surgery. It took about 72hrs to get patient transferred. Patient will transfer in stable condition. Vital Signs/Physical Exam: Temp Pulse Resp BP Pulse Ox 97.7 F 58 20 124/68 99 08/21/20 00:40 08/21/20 00:40 08/21/20 00:40 08/21/20 00:40 08/21/20 00:40 General: Alert, In no apparent distress, Oriented x3 Laboratory Data at Discharge: WBC 6.6 K/uL (4.3-10.9) 08/17/20 05:33 Hgb 15.0 g/dL (13.6-17.9) 08/17/20 05:33 Hct 43.1 % (39.6-49.0) 08/17/20 05:33 Plt Count 161 K/uL (152-406) 08/17/20 05:33 PT 11.5 SECONDS (9.5-12.5) 08/15/20 18:15 INR 0.97 08/15/20 18:15 Sodium 141 mmol/L (136-145) 08/17/20 05:33 Potassium 4.2 mmol/L (3.5-5.1) 08/17/20 05:33 BUN 29 mg/dL (7-18) H 08/17/20 05:33 Creatinine 1.62 mg/dL (0.55-1.3) H 08/17/20 05:33 Glucose 126 mg/dL (74-106) H 08/17/20 05:33 Magnesium 2.0 mg/dL (1.8-2.4) 08/15/20 18:15 Total Bilirubin 0.4 mg/dL (0.2-1.0) 08/15/20 18:15 AST 18 U/L (15-37) 08/15/20 18:15 ALT 23 U/L (12-78) 08/15/20 18:15 Alkaline Phosphatase 85 U/L (45-117) 08/15/20 18:15 Troponin I Cancelled 08/16/20 05:58 Triglycerides 69 mg/dL (<150) 08/16/20 00:36 Cholesterol 100 mg/dL (<200) 08/16/20 00:36 HDL Cholesterol 39 mg/dL (40-60) L 08/16/20 00:36 Cholesterol/HDL Ratio 2.56 08/16/20 00:36 Home Medications: NK [No Home Meds] 08/16/20 Patient Discharge Instructions: Transfer to [facility] Diet: AHA Activity: Fall precautions Followup: Unknown,U [Primary Care Provider] - Time spent managing pt's care (in minutes): 15
== END 2020-08-21 00:02 | disposition short-term general hospital (02) | DRG 282 ==
LOC: ER 17:32 → ERHOLD 20:03 → 2ND 23:45 → OBSVTOIN 08-16 07:51
PROVIDERS: ADMIT Hospitalist; ATTEND Hospitalist
PROC: 4A023N7 Measurement of Cardiac Sampling and Pressure, Left Heart, Percutaneous Approach (ICD-10-PCS; principal; 2020-08-16)
PROC: B2111ZZ Fluoroscopy of Multiple Coronary Arteries using Low Osmolar Contrast (ICD-10-PCS; 2020-08-16)
DX: I21.4 Non-ST elevation (NSTEMI) myocardial infarction (principal); I10 Essential (primary) hypertension; K21.9 Gastro-esophageal reflux disease without esophagitis; I25.10 Atherosclerotic heart disease of native coronary artery without angina pectoris; E78.5 Hyperlipidemia, unspecified; N28.9 Disorder of kidney and ureter, unspecified; E11.8 Type 2 diabetes mellitus with unspecified complications; M10.9 Gout, unspecified; I25.2 Old myocardial infarction; Z90.5 Acquired absence of kidney; Z52.4 Kidney donor; Z95.5 Presence of coronary angioplasty implant and graft; Z91.14 Patient's other noncompliance with medication regimen; Z20.828 Contact with and (suspected) exposure to other viral communicable diseases
CPT/HCPCS: 36415; 71045; 80048; 80061; 80076; 82947; 83036; 83735; 83880; 84484; 85025; 85610; 93005; 93306; 93458; 96372; 96374; 99285; C1893; G0378; J0583; J1644; J2250; J2270; J3010; J7040; U0003

== ENCOUNTER 2020-08-29 07:00 | Emergency (ER) | payer SELFPAY ==
[2020-08-29 07:33] LABS: Basophils % 0.9 % (0-1.3); Lymphocytes % 15.6 % (15.3-44.8); MPV 7.7 fL (7.6-11.3); RBC Red Blood Cell Count 3.25 M/uL (4.33-5.43)
[2020-08-29 07:38] LABS: Protime INR 0.93
[2020-08-29] MEDS ORDERED: MECLIZINE HCL 12.5 MG TAB ONE (07:44)
[2020-08-29 07:47] LABS: Magnesium 2.2 mg/dL (1.8-2.4); Troponin (Emerg Dept Use Only) 0.05 ng/mL (0.0-0.045)
--- NOTE | 2020-08-29 07:48 | RAD REPORT ---
EXAM DESCRIPTION: CT - Head Brain Wo Cont - 08/29/2020 7:36 am CLINICAL HISTORY: Dizziness COMPARISON: None TECHNIQUE: Computed axial tomography of the head was obtained. IV contrast was not requested. All CT scans are performed using dose optimization technique as appropriate and may include automated exposure control or mA/KV adjustment according to patient size. FINDINGS: An intracranial bleed is not seen . The ventricles are normal in caliber. No extra-axial fluid collection is noted. Moderate low-density areas within periventricular, deep and subcortical white matter likely represent ischemic changes secondary to small vessel disease. Fluid within the sinuses/ mastoids is not seen. IMPRESSION: No acute intracranial abnormality is seen. If patient's symptoms persist MRI of the bra in would be recommended.
[2020-08-29 10:28] LABS: Urine Blood NEGATIVE (NEG); Urine Glucose NEGATIVE (NEG); Urine Protein NEGATIVE (NEG)
--- NOTE | 2020-08-29 10:51 | ER ---
Nurse's Notes [facility] Name: Ted Barbosa Age: 70 yrs Sex: Male : 1950 Arrival Date: 08/29/2020 Time: 07:01 Bed 17 Private MD: Diagnosis: Vertigo;Dizziness and giddiness;Dehydration Presentation: 08/29 07:00 Care prior to arrival: Medication(s) given: Phenergan, 12.5 mg, zofran 4 mg, IV jb4 initiated. 20 GA, in the right forearm. 07:02 Chief complaint: EMS states: PT recently had a Cardiac bypass 2 weeks ago. Pt reports jb4 being dizzy since yesterday morning with nausea and generalized weakness. Vomited once with us. Last set of vitals 124/70, HR of 80-90, 94 RA. Coronavirus screen: Client denies travel out of the [place] in the last 14 days. At this time, the client does not indicate any symptoms associated with coronavirus-19. Ebola Screen: No symptoms or risks identified at this time. Initial Sepsis Screen: Does the patient meet any 2 criteria? No. Patient's initial sepsis screen is negative. Does the patient have a suspected source of infection? No. Patient's initial sepsis screen is negative. Risk Assessment: Do you want to hurt yourself or someone else? Patient reports no desire to harm self or others. Onset of symptoms was August 28, 2020. Transition of care: patient was not received from another setting of care. 07:02 Method Of Arrival: EMS jb4 07:02 Acuity: CHANTAL 2 jb4 Historical: - Allergies: 07:00 No Known Allergies; jb4 - Home Meds: 07:00 Metformin Oral [Active]; atorvastatin oral oral [Active]; jb4 - PMHx: 07:00 Hypertension; Diabetes - NIDDM; jb4 - PSHx: 07:00 CABG; jb4 - Immunization history:: Adult Immunizations up to date. - Social history:: Smoking status: unknown. - Family history:: not pertinent. - Hospitalizations: : Patient was recently seen at. Screenin:11 Abuse screen: Denies threats or abuse. Denies injuries from another. Nutritional ph screening: No deficits noted. Tuberculosis screening: No symptoms or risk factors identified. Fall Risk None identified. Assessment: 07:19 General: Appears in no apparent distress. comfortable, well groomed, Behavior is calm, ph cooperative, appropriate for age, drowsy, Denies fever, feeling ill. Pain: Denies pain. Neuro: Level of Consciousness is lethargic, Pt received Phenergan BAKERY HELPER and is drowsy, awakened for assessment by ERP then quickly fell back asleep. Oriented to person, place, time, situation, Java Mobile Developer are equal bilaterally Moves all extremities. Speech is normal, Facial symmetry appears normal, Intact Reports dizziness, since yesterday Denies weakness difficulty swallowing, headache. Cardiovascular: Reports lightheadedness, Denies chest pain, nausea, palpitations, shortness of breath, syncope, vomiting, Capillary refill < 3 seconds in bilateral fingers Patient's skin is warm and dry. 07:32 Reassessment: Patient appears in no apparent distress at this time. Patient and/or ph family updated on plan of care and expected duration. Pain level reassessed. Pt taken to CT via stretcher. 08:30 Reassessment: Patient appears in no apparent distress at this time. Patient and/or ph family updated on plan of care and expected duration. Pain level reassessed. Patient is alert, oriented x 3, equal unlabored respirations, skin warm/dry/pink. 09:44 Reassessment: Patient appears in no apparent distress at this time. Patient and/or ph family updated on plan of care and expected duration. Pain level reassessed. Patient is alert, oriented x 3, equal unlabored respirations, skin warm/dry/pink. 11:00 Reassessment: Patient appears in no apparent distress at this time. Patient and/or ph family updated on plan of care and expected duration. Pain level reassessed. Patient is alert, oriented x 3, equal unlabored respirations, skin warm/dry/pink. 12:00 Reassessment: Patient appears in no apparent distress at this time. Patient and/or ph family updated on plan of care and expected duration. Pain level reassessed. Patient is alert, oriented x 3, equal unlabored respirations, skin warm/dry/pink. 13:01 Reassessment: Patient appears in no apparent distress at this time. Patient and/or ph family updated on plan of care and expected duration. Pain level reassessed. Patient is alert, oriented x 3, equal unlabored respirations, skin warm/dry/pink. 14:31 Reassessment: Attemted to call report to [facility], spoke to CCU charge nurse who ph stated, " WE are tripled up right now and may have a one on one pt coming in, I have to check w/ the change house attendant to make sure we can take the patient. Can you call back?". 15:12 Reassessment: Report given to Satnam RN at [facility]. ph 15:56 Reassessment: Patient appears in no apparent distress at this time. Patient and/or ph family updated on plan of care and expected duration. Pain level reassessed. Patient is alert, oriented x 3, equal unlabored respirations, skin warm/dry/pink. [facility] at bedside, report given to Abbi EMT-P, pt transferred to [facility]. Vital Signs: 07:00 BP 143 / 76; Pulse 80; Resp 18; Temp 98.8(O); Pulse Ox 95% on R/A; Weight 81.65 kg (R); jb4 Height 5 ft. 6 in. (167.64 cm); 08:20 BP 138 / 70; Pulse 81; Resp 18; Pulse Ox 95% on R/A; ph 09:30 BP 134 / 75; Pulse 86; Resp 18; Pulse Ox 94% on R/A; ph 11:07 BP 142 / 77; Pulse 85; Resp 16; Pulse Ox 97% on R/A; zb 12:00 BP 143 / 78; Pulse 82; Resp 16; Pulse Ox 95% on R/A; ph 13:02 BP 131 / 69; Pulse 83; Resp 18; Pulse Ox 95% on R/A; ph 14:00 BP 132 / 80; Pulse 87; Resp 16; Pulse Ox 95% on R/A; ph 15:26 BP 144 / 86; Pulse 103; Resp 16; Temp 98.0; Pulse Ox 95% on R/A; ph 07:00 Body Mass Index 29.05 (81.65 kg, 167.64 cm) jb4 ED Course: 07:01 Patient arrived in ED. cl3 07:01 Maurizio Goins MD is Attending Physician. rn 07:02 Arm band placed on right wrist. EKG completed in triage. Results shown to . jb4 07:03 Gold, Concepcion, RN is Primary Nurse. ph 07:07 Patient has correct armband on for positive identification. Placed in gown. Bed in low ph position. Call light in reach. Side rails up X2. quality assurance monitor on. Pulse ox on. NIBP on. Door closed. Noise minimized. Warm blanket given. 07:08 Triage completed. jb4 07:30 Maintain EMS IV. Dressing intact. Good blood return noted. Site clean \\T\\ dry. Gauge \\T\\ ph site: 20 RFA. 07:36 CT Head Brain wo Cont In Process Unspecified. EDMS 14:43 initiated transfer to [facility], pt accepted in transfer by dr ambriz, admin bd approval given by Tha Faustin. 15:23 No provider procedures requiring assistance completed. ph 15:25 Patient transferred, IV remains in place. ph Administered Medications: 08:19 Drug: Meclizine 50 mg Route: PO; ph 09:08 Follow up: Response: No adverse reaction zb 11:07 Drug: Aspirin Chewable Tablet 324 mg Route: PO; zb 13:23 Follow up: Response: No adverse reaction ph 11:07 Drug: NS 0.9% 500 ml Route: IV; Rate: bolus; Site: right forearm; zb 12:00 Follow up: Response: No adverse reaction; IV Status: Completed infusion; IV Intake: ph 500ml Intake: 12:00 IV: 500ml; Total: 500ml. ph Outcome: 10:51 ER care complete, transfer ordered by . rn 16:00 Transferred by ground EMS [facility] to [facility], Transfer form ph completed. X-rays sent w/ patient. 16:00 Condition: stable 16:01 Patient left the ED. ph Signatures: Dispatcher [employer] EDMS Griselda Cast Roman, MD MD rn Hall, Patricia, RN RN Vini Gutierrez RN RN jb4 Lewis, Charde cl3 Brown, Zipporah, RN RN zb
--- NOTE | 2020-08-29 10:52 | EDPHYS ---
Physician Documentation [facility] Name: Ted Barbosa Age: 70 yrs Sex: Male : 1950 Arrival Date: 08/29/2020 Time: 07:01 Bed 17 Private MD: ED Physician Maurizio Goins HPI: 08/29 10:43 This 70 yrs old Male presents to ER via EMS with complaints of Dizziness. rn 10:43 The patient presents with dizziness, feeling faint, generalized weakness, sense of rn spinning. Onset: The symptoms/episode began/occurred yesterday. Modifying factors: The symptoms are alleviated by nothing, the symptoms are aggravated by movement of head, standing up, changing position. Severity of symptoms: At their worst the symptoms were moderate in the emergency department the symptoms are unchanged. The patient has not experienced similar symptoms in the past. Reports cardiac bypass 5 days ago, unable to get prescription medication so has not taken anything since discharged Friday, returns today with dizziness, nausea, generalized weakness, and feeling like going to pass out since yesterday. Intermittent, worse when trying to get up and/or change position. No head injury. No focal neuro complaint. . Historical: - Allergies: 07:00 No Known Allergies; jb4 - Home Meds: 07:00 Metformin Oral [Active]; atorvastatin oral oral [Active]; jb4 - PMHx: 07:00 Hypertension; Diabetes - NIDDM; jb4 - PSHx: 07:00 CABG; jb4 - Immunization history:: Adult Immunizations up to date. - Social history:: Smoking status: unknown. - Family history:: not pertinent. - Hospitalizations: : Patient was recently seen at. ROS: 10:46 Constitutional: Negative for fever, chills, and weight loss, Eyes: Negative for injury, rn pain, redness, and discharge, Neck: Negative for injury, pain, and swelling, Cardiovascular: Negative for chest pain, palpitations, and edema, Respiratory: Negative for shortness of breath, cough, wheezing, and pleuritic chest pain, Abdomen/GI: + nausea MS/Extremity: Negative for injury and deformity, Skin: Negative for injury, rash, and discoloration, Neuro: + generalized weakness and dizziness Exam: 10:46 Constitutional: This is a well developed, well nourished patient who is awake, alert, rn and in no acute distress. Head/Face: Normocephalic, atraumatic. ENT: dry MM Chest/axilla: Post-operative midline thoracotomy scar Cardiovascular: Regular rate and rhythm. No pulse deficits. Respiratory: No increased work of breathing, no retractions or nasal flaring. Abdomen/GI: Soft, non-tender Skin: Warm, dry MS/ Extremity: Pulses equal, no cyanosis. Neurovascular intact. Full, normal range of motion. Equal circumference. Neuro: Awake and alert, GCS 15, oriented to person, place, time, and situation. Cranial nerves II-XII grossly intact. Motor strength 5/5 in all extremities. Sensory grossly intact. 10:46 ECG was reviewed by the Attending Physician. rn Vital Signs: 07:00 BP 143 / 76; Pulse 80; Resp 18; Temp 98.8(O); Pulse Ox 95% on R/A; Weight 81.65 kg (R); jb4 Height 5 ft. 6 in. (167.64 cm); 08:20 BP 138 / 70; Pulse 81; Resp 18; Pulse Ox 95% on R/A; ph 09:30 BP 134 / 75; Pulse 86; Resp 18; Pulse Ox 94% on R/A; ph 11:07 BP 142 / 77; Pulse 85; Resp 16; Pulse Ox 97% on R/A; zb 12:00 BP 143 / 78; Pulse 82; Resp 16; Pulse Ox 95% on R/A; ph 13:02 BP 131 / 69; Pulse 83; Resp 18; Pulse Ox 95% on R/A; ph 14:00 BP 132 / 80; Pulse 87; Resp 16; Pulse Ox 95% on R/A; ph 15:26 BP 144 / 86; Pulse 103; Resp 16; Temp 98.0; Pulse Ox 95% on R/A; ph 07:00 Body Mass Index 29.05 (81.65 kg, 167.64 cm) jb4 MDM: 07:01 Patient medically screened. rn 10:46 Differential diagnosis: cardiac arrhythmia, CVA, generalized weakness, rn hyperventilation, hypovolemia, idiopathic dizziness, TIA, vertigo. Data reviewed: vital signs, nurses notes, lab test result(s), EKG, radiologic studies, CT scan, and as a result, I will admit patient. Counseling: I had a detailed discussion with the patient and/or guardian regarding: the historical points, exam findings, and any diagnostic results supporting the discharge/admit diagnosis, lab results, radiology results, the need to transfer to another facility, for higher level of care, [facility] does not immediately have the required specialist. Response to treatment: the patient's symptoms have markedly improved after treatment, and as a result, I will admit patient. ED course: Reports feels better but not good enough to try and ambulate, neg ct head, trop 0.05 but also s/p cardiac surgery, no chest pain to indicate cardiac problem. Contacting [facility] for transfer to rule out post operative complication vs CVA/TIA, also given patient without medication for several days, is a bit concerning. . 11:24 ED course: Accepted without consultation by Dr. Finn at [facility].. rn 08/29 07:17 Order name: Basic Metabolic Panel; Complete Time: 07: rn 08/29 07:17 Order name: CBC with Diff; Complete Time: : rn 08/29 07:17 Order name: Magnesium; Complete Time: 07: rn 08/29 07:17 Order name: Protime (+inr); Complete Time: 07: rn 08/29 07:17 Order name: Ptt, Activated; Complete Time: 07: rn 08/29 07:17 Order name: Troponin (emerg Dept Use Only); Complete Time: 07: rn 08/29 07:17 Order name: CT Head Brain wo Cont; Complete Time: 07: rn 08/29 09:14 Order name: Urine Dipstick--Ancillary (enter results); Complete Time: 10:30 bd 08/29 13:09 Order name: SARS-COV-2 RT PCR EDMA 08/29 07:17 Order name: Cardiac monitoring; Complete Time: 07: rn 08/29 07:17 Order name: EKG - Nurse/Tech; Complete Time: 07: rn 08/29 07:17 Order name: IV Saline Lock; Complete Time: 07: rn 08/29 07:17 Order name: Labs collected and sent; Complete Time: 07: rn 08/29 07:17 Order name: NPO; Complete Time: 07: rn 08/29 07:17 Order name: O2 Per Protocol; Complete Time: 07: rn 08/29 07:17 Order name: O2 Sat Monitoring; Complete Time: : rn EC:46 Rate is 81 beats/min. Rhythm is regular. QRS [place] is Normal. [place] interval is normal. QRS rn interval is normal. QT interval is normal. No Q waves. T waves are Inverted in leads V3, V4, V5, V6. No ST changes noted. Clinical impression: NSR w/ Non-specific ST/T Changes. Interpreted by me. Reviewed by me. Administered Medications: : Drug: Meclizine 50 mg Route: PO; ph 09:08 Follow up: Response: No adverse reaction zb 11:07 Drug: Aspirin Chewable Tablet 324 mg Route: PO; zb 13:23 Follow up: Response: No adverse reaction ph 11: Drug: NS 0.9% 500 ml Route: IV; Rate: bolus; Site: right forearm; zb 12:00 Follow up: Response: No adverse reaction; IV Status: Completed infusion; IV Intake: ph 500ml Disposition: 08/29/20 10:51 Transfer ordered to [facility]. Diagnosis are Vertigo, Dizziness and giddiness, Dehydration. - Reason for transfer: Higher level of care. - Accepting physician is . - Condition is Stable. - Problem is new. - Symptoms have improved. Signatures: Dispatcher [employer] [facility] Maurizio Goins MD MD rn Hall, Patricia, RN RN ph Bryson, James RN Alayna Garland RN RN zb Corrections: (The following items were deleted from the chart) 12:10 11:23 CORONAVIRUS+MR.LAB.BRZ ordered. [facility] 16:01 10:51 08/29/2020 10:51 Transfer ordered to [facility]. ph Diagnosis is Vertigo; Dizziness and giddiness; Dehydration. Reason for transfer: Higher level of care. Accepting physician is . Condition is Stable. Problem is new. Symptoms have improved. rn
[2020-08-29] MEDS ORDERED: NA CHLORIDE 0.9% 500 ML ONE (11:04)
[2020-08-29] MEDS ORDERED: ASPIRIN 81 MG CHEWABLE TABLET ONE (11:04)
[2020-08-29 17:58] VITALS: O2SAT 95
[2020-08-29 18:03] VITALS: BP 144/86; TEMP 98
--- NOTE | 2020-08-31 07:37 | EKG ---
Test Date: 2020-08-29 Test Time: 06:56:59 Sack Keeper: SHANA MEASUREMENT RESULTS: Intervals: Rate: 81 MS: 154 QRSD: 86 QT: 366 QTc: 425 [place]: P: 37 MS: 154 QRS: 47 T: 125 INTERPRETIVE STATEMENTS: Normal sinus rhythm Nonspecific T wave abnormality Abnormal ECG No previous ECG available for comparison Electronically Signed On 08-31-20 07:32:55 MAILROOM ASSISTANT by Jairo Foster
== END 2020-08-29 16:01 | disposition short-term general hospital (02) ==
LOC: MERGE 07:00 → ER 07:00 → EDBD 07:00 → ER 16:01
DX: E86.0 Dehydration (principal); Z20.828 Contact with and (suspected) exposure to other viral communicable diseases; Z98.890 Other specified postprocedural states; Z95.1 Presence of aortocoronary bypass graft; I10 Essential (primary) hypertension; E11.9 Type 2 diabetes mellitus without complications
CPT/HCPCS: 36415; 70450; 80048; 81003; 83735; 84484; 85025; 85610; 85730; 93005; 96360; 99285; J7040; U0003